=== PATIENT | female | born 1985 | race Two or more races ===

== ENCOUNTER 2018-05-17 09:11 | Emergency (ER) | payer OTHER ==
[2018-05-17] MEDS ORDERED: amLODIPine 5 MG TAB PO ONE (09:45)
[2018-05-17 09:55] VITALS: BP 178/110
[2018-05-17 10:03] LABS: BASO % 0.8 % (0.0-1.0); EOS # 0.2 10^3/uL (0.0-0.50); HEMOGLOBIN 12.6 g/dl (12.0-15.5); LYMPH # 1.8 10^3/uL (1.5-4.5); LYMPH % 34.1 % (24.0-44.0); MEAN CORPUSCULAR HEMOGLOBIN 29.6 pg (27.0-33.0); MEAN CORPUSCULAR HGB CONC 32.3 g/dl (32.0-36.5); MEAN CORPUSCULAR VOLUME 91.8 fl (80.0-96.0); MONO # 0.6 10^3/uL (0.0-0.8); MONO % 11.8 % (0.0-5.0); NEUTROPHILS # 2.6 10^3/uL (1.8-7.7); NEUTROPHILS % 50.1 % (36.0-66.0); PLATELET COUNT, AUTOMATED 322 10^3/uL (150-450); RED BLOOD COUNT 4.25 10^6/uL (4.00-5.40); WHITE BLOOD COUNT 5.3 10^3/uL (4.0-10.0)
[2018-05-17 10:17] LABS: URINE PREG TEST NEGATIVE (NEGATIVE)
[2018-05-17 10:25] LABS: BLOOD UREA NITROGEN 10 MG/DL (7-18); CALCIUM LEVEL 8.5 MG/DL (8.5-10.1); CARBON DIOXIDE LEVEL 26 MEQ/L (21-32); CHLORIDE LEVEL 109 MEQ/L (98-107); GLOMERULAR FILTRATION RATE > 60.0 (>60); GLUCOSE, FASTING 95 MG/DL (70-100); POTASSIUM SERUM 4.2 MEQ/L (3.5-5.1); SODIUM LEVEL 140 MEQ/L (136-145)
--- NOTE | 2018-05-17 11:17 | REP ---
CHEST, TWO VIEWS: Two views of the chest are performed. There is no acute infiltrate or pulmonary edema. Heart is mildly enlarged. Mediastinal silhouette is unremarkable. Visualized osseous structures are intact. IMPRESSION: Mild cardiomegaly. No acute infiltrate or pulmonary edema. Electronically Signed by David Stevens MD 05/17/2018 03:12 P
--- NOTE | 2018-05-17 11:51 | REP ---
CT Head without contrast HISTORY: Headache COMPARISON: None There is no intraparenchymal hemorrhage, acute infarct, mass or midline shift. The ventricular system is normal in appearance. There is no extra cerebral collection. There is no fracture. The visualized sinuses are clear. IMPRESSION: There is no intracranial lesion. Electronically Signed by Salazar Diaz MD 05/17/2018 11:43 A
[2018-05-17] MEDS ORDERED: CHLO125TA PO (12:23)
[2018-05-17] MEDS ORDERED: POTA10CA32 PO (12:25)
[2018-05-17 12:28] VITALS: BP 148/86
--- NOTE | 2018-05-17 19:59 | ECGEPIP ---
Stationary ECG Study [facility] - ED Test Date: 2018-05-17 Pat Name: ELIANA COLE Department: Room: - Gender: F Wedger: : 1985 Requested By: MAURICIO Harrington PA-C Order Number: [id number] Reading MD: Dixie Lackey Measurements Intervals [place] Rate: 55 P: 32 FL: 157 QRS: 42 QRSD: 87 T: 24 QT: 456 QTc: 436 Interpretive Statements SINUS BRADYCARDIA WITH SINUS ARRHYTHMIA MINIMAL VOLTAGE CRITERIA FOR LVH, CONSIDER NORMAL VARIANT NO PRIOR FOR COMPARISON Electronically Signed On 05-17-2018 19:58:47 EDT by Dixie Lackey
== END 2018-05-17 12:50 | disposition home or self-care (01) ==
LOC: M ED 09:11 → EDBD 09:11 → M ED 12:50
DX: R03.0 Elevated blood-pressure reading, without diagnosis of hypertension (principal); I51.7 Cardiomegaly; R51 Headache; Z91.018 Allergy to other foods; Z87.891 Personal history of nicotine dependence

== ENCOUNTER → 2018-09-12 | Outpatient (REF) | payer OTHER ==
[~2018-09-12] MED LIST: CHLO125TA PO; POTA10CA32 PO
[2018-09-12 20:17] LABS: ALBUMIN 4.4 GM/DL (3.2-5.2); ALT/SGPT 11 U/L (12-78); BILIRUBIN,TOTAL 0.8 MG/DL (0.2-1.0); BLOOD UREA NITROGEN 9 MG/DL (7-18); CARBON DIOXIDE LEVEL 28 MEQ/L (21-32); CHLORIDE LEVEL 106 MEQ/L (98-107); CREATININE FOR GFR 0.82 MG/DL (0.55-1.30); GLOMERULAR FILTRATION RATE > 60.0 (>60); GLUCOSE, FASTING 83 MG/DL (70-100); POTASSIUM SERUM 4.3 MEQ/L (3.5-5.1); SODIUM LEVEL 141 MEQ/L (136-145)
== END ==
LOC: M SFHCLERA 16:06
PROVIDERS: ATTEND Nurse Practitioner Family
DX: R03.0 Elevated blood-pressure reading, without diagnosis of hypertension (principal)

== ENCOUNTER → 2018-09-12 | Outpatient (CLI) | payer OTHER ==
[2018-09-14 09:06] LABS: RUBEOLA IgG ANTIBODY <25.0 AU/mL (Immune >29.9)
[2018-09-14 10:42] LABS: RUBELLA IgG QUALITATIVE IMMUNE (IMMUNE)
== END ==
LOC: M LRY 16:39
DX: Z01.84 Encounter for antibody response examination (principal); R03.0 Elevated blood-pressure reading, without diagnosis of hypertension
CPT/HCPCS: 36415; 80053; 86735; 86762; 86765; G0463